=== PATIENT | female | born 1985 | race American Indian/Alaskan Native ===

== ENCOUNTER 2016-09-07 17:39 | Emergency (ER) | payer MEDICAID, OTHER ==
[2016-09-07 18:12] VITALS: BP 118/83
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
[2016-09-07] MEDS ORDERED: FLEXERIL PO ONE (20:14)
[2016-09-07] MEDS ORDERED: NORCO 5/325 PO ONE (20:14)
[2016-09-07] MEDS ORDERED: MOTRIN PO ONE (20:14)
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
== END 2016-09-07 21:10 | disposition home or self-care (01) ==
LOC: ED 17:39
DX: S00.83XA Contusion of other part of head, initial encounter (principal); V49.49XA Driver injured in collision with other motor vehicles in traffic accident, initial encounter; Y93.9 Activity, unspecified; Y92.9 Unspecified place or not applicable; Y99.9 Unspecified external cause status
CPT/HCPCS: 70150